=== PATIENT | male | born 1965 | race Caucasian/White ===

== ENCOUNTER 2017-04-22 17:38 | Emergency (ER) | payer MEDICARE ==
[2017-04-22 17:48] VITALS: BP 111/77
--- NOTE | 2017-04-22 18:29 | ER Document Report ---
ED Medical Screen (RME) - General Chief Complaint: Breathing Difficulty Stated Complaint: DIFFICULTY BREATHING Time Seen by Provider: 04/22/17 18:20 Notes: This 52-year-old male patient with a long history of dependency on opiates, benzodiazepines, and tobacco who has had bleeding ulcers in the past comes emergency room complaining of shortness of breath today that gets worse with activity. His respiratory rate is 22 with a 99% room air pulse ox. He ran out of his Ativan yesterday. I have greeted and performed a rapid initial assessment of this patient. A comprehensive ED assessment and evaluation of the patient, analysis of test results and completion of the medical decision making process will be conducted by additional ED providers. TRAVEL OUTSIDE OF THE [place] IN LAST 30 DAYS: No - Related Data Allergies/Adverse Reactions: No Known Allergies Allergy (Verified 04/22/17 18:16) Past Medical History - Past Medical History Cardiac Medical History: Reports: Hx Hypercholesterolemia, Hx Hypertension Pulmonary Medical History: Reports: Hx Pneumonia Neurological Medical History: Reports: Hx Seizures Renal/ Medical History: Denies: Hx Peritoneal Dialysis GI Medical History: Reports: Hx Gastroesophageal Reflux Disease Psychiatric Medical History: Reports: Hx Anxiety, Hx Depression Traumatic Medical History: Reports: Hx Fractures - Heel fractures, Hx Traumatic Brain Injury Past Surgical History: Reports: Hx Orthopedic Surgery - Harris rods age 17 for scoliosis - Immunizations Hx Diphtheria, Pertussis, Tetanus Vaccination: No Physical Exam - Vital signs Vitals: Temp Pulse Resp BP Pulse Ox 98 F 85 22 H 111/77 99 04/22/17 17:46 04/22/17 17:46 04/22/17 17:46 04/22/17 17:46 04/22/17 17:46 Course - Vital Signs Vital signs: Temp Pulse Resp BP Pulse Ox 98 F 85 22 H 111/77 99 04/22/17 17:46 04/22/17 17:46 04/22/17 17:46 04/22/17 17:46 04/22/17 17:46
--- NOTE | 2017-04-22 19:42 | RADIOLOGY REPORT (SQ) ---
EXAM DESCRIPTION: CHEST PA/LAT COMPLETED DATE/TIME: 04/22/2017 7:26 pm REASON FOR STUDY: SOB COMPARISON: September 2016 EXAM PARAMETERS: NUMBER OF VIEWS: two views TECHNIQUE: Digital Frontal and Lateral radiographic views of the chest acquired. RADIATION DOSE: NA LIMITATIONS: none FINDINGS: LUNGS AND PLEURA: No opacities, masses or pneumothorax. No pleural effusion. MEDIASTINUM AND HILAR STRUCTURES: No masses or contour abnormalities. HEART AND VASCULAR STRUCTURES: Heart normal size. No evidence for failure. BONES: Thoracic scoliosis convex to the right is unchanged. HARDWARE: Harris prince is unchanged in position. OTHER: No other significant finding. IMPRESSION: No significant interval change. No acute findings. Other findings as noted above TECHNICAL DOCUMENTATION: JOB ID: [id number] [employer]- All Rights Reserved
[2017-04-22] MEDS ORDERED: LORAZEPAM 1 MG TABLET PO ONE (19:53)
[2017-04-22 19:55] LABS: ABSOLUTE EOSINOPHILS # (AUTO) 0.1 10^3/uL (0.0-0.6); ABSOLUTE LYMPHOCYTES (AUTO) 3.2 10^3/uL (0.5-4.7); ABSOLUTE MONOCYTES (AUTO) 0.7 10^3/uL (0.1-1.4); ABSOLUTE NEUT (AUTO) 7.4 10^3/uL (1.7-8.2); BASOPHILS % (AUTO) 0.4 % (0-2); EOSINOPHILS % (AUTO) 0.7 % (0-6); HEMATOCRIT 34.5 % (37.9-51.0); HEMOGLOBIN 11.2 g/dL (13.5-17.0); HGB HCT DIFFERENCE -0.9; LYMPHOCYTES % (AUTO) 27.9 % (13-45); MEAN CORPUSCULAR HEMOGLOBIN 29.5 pg (27.0-33.4); MEAN CORPUSCULAR HGB CONC 32.6 g/dL (32.0-36.0); MEAN CORPUSCULAR VOLUME 90 fl (80-97); MONOCYTES % (AUTO) 6.3 % (3-13); RED BLOOD COUNT 3.82 10^6/uL (4.35-5.55); RED CELL DISTRIBUTION WIDTH 13.4 % (11.5-14.0); SEGMENTED NEUTROPHILS % (AUTO) 64.7 % (42-78); WHITE BLOOD COUNT 11.4 10^3/uL (4.0-10.5)
--- NOTE | 2017-04-22 19:55 | ER Document Report ---
ED General - General Chief Complaint: Breathing Difficulty Stated Complaint: DIFFICULTY BREATHING Time Seen by Provider: 04/22/17 18:20 Notes: Patient is a 52-year-old male that comes emergency department for chief complaint of shortness of breath that started this morning, he states that he feels like it comes and goes, he denies chest pain, he denies dizziness, he states the shortness of breath is worse with activity. Patient does smoke tobacco, denies history of COPD or asthma, denies wheezing, cough, fever. Patient states he was just weaned off his pain medications and he is having back pains, pending surgery for scoliosis reportedly. Patient also states that he is normally on Ativan and ran out yesterday. He has a refill for this that will not be available until 04/26/2017. Patient denies any cardiovascular history , states he had a negative stress test within the past year. TRAVEL OUTSIDE OF THE [place] IN LAST 30 DAYS: No - Related Data Allergies/Adverse Reactions: No Known Allergies Allergy (Verified 04/22/17 18:16) Past Medical History - General Information source: Patient - Social History Smoking Status: Current Every Day Smoker Smoking Education Provided: Yes - <3 min Drug Abuse: None Lives with: Family Family History: CVA - Mother - Past Medical History Cardiac Medical History: Reports: Hx Hypercholesterolemia, Hx Hypertension Pulmonary Medical History: Reports: Hx Pneumonia Neurological Medical History: Reports: Hx Seizures Renal/ Medical History: Denies: Hx Peritoneal Dialysis GI Medical History: Reports: Hx Gastroesophageal Reflux Disease Psychiatric Medical History: Reports: Hx Anxiety, Hx Depression Traumatic Medical History: Reports: Hx Fractures - Heel fractures, Hx Traumatic Brain Injury Past Surgical History: Reports: Hx Orthopedic Surgery - Harris rods age 17 for scoliosis - Immunizations Hx Diphtheria, Pertussis, Tetanus Vaccination: No Review of Systems - Review of Systems Constitutional: No symptoms reported EENT: No symptoms reported Cardiovascular: No symptoms reported Respiratory: See HPI Gastrointestinal: No symptoms reported Genitourinary: No symptoms reported Male Genitourinary: No symptoms reported Musculoskeletal: See HPI Skin: No symptoms reported Hematologic/Lymphatic: No symptoms reported Neurological/Psychological: See HPI Physical Exam - Vital signs Vitals: Temp Pulse Resp BP Pulse Ox 98 F 85 22 H 111/77 99 04/22/17 17:46 04/22/17 17:46 04/22/17 17:46 04/22/17 17:46 04/22/17 17:46 Interpretation: Normal - General General appearance: Anxious In distress: None - patient talks rapidly and nervously, however he does not appear to be in distress - HEENT Head: Normocephalic, Atraumatic Eyes: Normal Pupils: PERRL - Respiratory Respiratory status: No respiratory distress. No: Tachypnea Chest status: Nontender Breath sounds: Normal. No: Decreased air movement, Wheezing Chest palpation: Normal - Cardiovascular Rhythm: Regular Heart sounds: Normal auscultation Murmur: No - Abdominal Inspection: Normal Distension: No distension Bowel sounds: Normal Tenderness: Nontender. No: Tender, Guarding Organomegaly: No organomegaly - Back Back: Normal, Nontender. No: Tender - Extremities General upper extremity: Normal inspection, Nontender, Normal color, Normal ROM , Normal temperature General lower extremity: Normal inspection, Nontender, Normal color, Normal ROM , Normal temperature, Normal weight bearing. No: Rafi's sign - Neurological Neuro grossly intact: Yes Cognition: Normal Orientation: AAOx4 Svetlana Coma Scale Eye Opening: Spontaneous [place] Coma Scale Verbal: Oriented [place] Coma Scale Motor: Obeys Commands [place] Coma Scale Total: 15 Speech: Normal Motor strength normal: LUE, RUE, LLE, RLE Sensory: Normal - Psychological Associated symptoms: Anxious - Patient talks rapidly and is slightly anxious on exam, however he does make good eye contact, he does answer questions appropriately, he does listen to questions without difficulty - Skin Skin Temperature: Warm Skin Moisture: Dry Skin Color: Normal Course - Re-evaluation Re-evalutation: Workup is unremarkable, patient is not tachypneic, hypoxic, and has clear lung sounds. Chest x-ray normal. Patient's shortness of breath resolved after Ativan was given. Suggest an anxiety component. Low suspicion of ACS given symptoms since this morning with normal troponin and unremarkable workup with symptoms starting only after he stopped his medications. Patient also asks for pain medication, however patient is on pain management and is getting weaned off morphine in plans of him having back surgery and having more efficacy with the medication again. Explained to patient that this was not in his best interest, I did agree to give him a small amount of Ativan pending his refills, discussed follow-up with his provider, discussed return precautions, patient states understanding and agreement. Patient declined staying for an additional troponin, I do not feel this is indicated and this test was canceled. - Vital Signs Vital signs: Temp Pulse Resp BP Pulse Ox 98 F 85 22 H 111/77 99 04/22/17 17:46 04/22/17 17:46 04/22/17 17:46 04/22/17 17:46 04/22/17 17:46 - Laboratory Result Diagrams: 04/22/17 19:03 04/22/17 19:03 Laboratory results interpreted by me: 04/22/17 04/22/17 19:03 19:03 WBC 11.4 H RBC 3.82 L Hgb 11.2 L Hct 34.5 L Chloride 110 H Discharge - Discharge Clinical Impression: Shortness of breath Chronic back pain Qualifiers: Back pain location: back pain in unspecified location Back pain laterality: bilateral Qualified Code(s): M54.9 - Dorsalgia, unspecified Condition: Stable Disposition: HOME, SELF-CARE Additional Instructions: Your workup today does not indicate an acute abnormality. Take the medication as prescribed, continue your current scripts, follow up with your Provider. Return to the ED for returned or new concerning symptoms. Prescriptions: Lorazepam [Ativan 1 mg Tablet] 1 mg PO Q4 PRN #12 tab PRN Reason: Referrals: BERTRAND ARAGON FNP [Primary Care Provider] - Follow up as needed
[2017-04-22 19:58] LABS: APPEARANCE,URINE CLEAR; BILIRUBIN,URINE NEGATIVE (NEGATIVE); GLUCOSE, URINE NEGATIVE (NEGATIVE); KETONES,URINE NEGATIVE (NEGATIVE); LEUKOCYTE ESTERASE,URINE NEGATIVE (NEGATIVE); NITRITE,URINE NEGATIVE (NEGATIVE); PROTEIN,URINE NEGATIVE (NEGATIVE); URINE SPECIFIC GRAVITY 1.013; UROBILINOGEN,URINE NEGATIVE mg/dL (<2.0)
[2017-04-22 20:05] LABS: ALANINE AMINOTRANSFERASE 28 U/L (21-72); ALBUMIN 4.3 g/dL (3.5-5.0); ALKALINE PHOSPHATASE 72 U/L (38-126); ANION GAP 11 (5-19); ASPARTATE AMINO TRANSFERASE 17 U/L (17-59); BILIRUBIN,DIRECT 0.4 mg/dL (0.0-0.4); BILIRUBIN,TOTAL 0.5 mg/dL (0.2-1.3); BLOOD UREA NITROGEN 12 mg/dL (7-20); CALCIUM 9.8 mg/dL (8.4-10.2); CARBON DIOXIDE 22 mmol/L (22-30); CHLORIDE 110 mmol/L (98-107); CREATINE KINASE 86 U/L (55-170); CREATININE RESULT 1.06 mg/dL (0.52-1.25); GLUCOSE 77 mg/dL (75-110); MAGNESIUM 1.7 mg/dL (1.6-2.3); POTASSIUM 3.7 mmol/L (3.6-5.0); TOTAL PROTEIN 7.4 g/dL (6.3-8.2)
[2017-04-22 20:15] LABS: CREATINE KINASE MB 1.48 ng/mL (<4.55)
[2017-04-22 20:18] LABS: TROPONIN I < 0.012 ng/mL
--- NOTE | 2017-04-23 21:10 | EKG REPORT ---
SEVERITY:- ABNORMAL ECG - SINUS RHYTHM PROBABLE LEFT ATRIAL ABNORMALITY NONSPECIFIC INTRAVENTRICULAR CONDUCTION DELAY : Confirmed by: Paulina Corbett 23-Apr-2017 21:09:07
== END 2017-04-22 20:50 | disposition home or self-care (01) ==
LOC: ER 17:38
DX: R06.02 Shortness of breath (principal); G89.29 Other chronic pain; M54.9 Dorsalgia, unspecified; M41.9 Scoliosis, unspecified; F17.200 Nicotine dependence, unspecified, uncomplicated; Z71.6 Tobacco abuse counseling; F41.9 Anxiety disorder, unspecified; I10 Essential (primary) hypertension; Z79.899 Other long term (current) drug therapy
CPT/HCPCS: 93005; 99285; 36415; 82553; 82550; 83735; 85025; 80053; 81001; 84484; 71020; 93010; A9270

== ENCOUNTER 2017-08-07 20:32 | Emergency (ER) | payer MEDICARE, MEDICAID ==
[2017-08-07] MEDS ORDERED: NORMAL SALINE 1000 ML 1,000 ML IV PRN (21:15)
--- NOTE | 2017-08-07 21:15 | ER Document Report ---
ED General - General Chief Complaint: Probable Seizure Stated Complaint: WEAKNESS Time Seen by Provider: 08/07/17 21:06 Mode of Arrival: Medic Information source: Patient Notes: This is a 52-year-old man with a history of hypertension, seizures, chronic back pain who is brought in by EMS after a seizure at home. Patient lives with her sister. He does report having a few shots of alcohol today. EMS reports that he had some nausea vomiting and diarrhea and that the family had called because he was "unresponsive". On arrival, he was noted to be alert but confused. Patient denies any chest pain, shortness of breath, abdominal pain. TRAVEL OUTSIDE OF THE [place] IN LAST 30 DAYS: No - HPI Onset: Just prior to arrival Onset/Duration: Sudden Quality of pain: No pain Severity: None Pain Level: Denies Associated symptoms: Diarrhea, Nausea, Vomiting. denies: Fever Exacerbated by: Denies Relieved by: Denies Similar symptoms previously: No Recently seen / treated by doctor: No - Related Data Allergies/Adverse Reactions: No Known Allergies Allergy (Verified 08/07/17 20:41) Past Medical History - General Information source: Patient - Social History Smoking Status: Current Every Day Smoker Cigarette use (# per day): Yes Chew tobacco use (# tins/day): No Frequency of alcohol use: Social Drug Abuse: None Lives with: Family Family History: CVA - Mother Patient has suicidal ideation: No Patient has homicidal ideation: No - Past Medical History Cardiac Medical History: Reports: Hx Hypercholesterolemia, Hx Hypertension Pulmonary Medical History: Reports: Hx Pneumonia Neurological Medical History: Reports: Hx Seizures Renal/ Medical History: Denies: Hx Peritoneal Dialysis GI Medical History: Reports: Hx Gastroesophageal Reflux Disease Psychiatric Medical History: Reports: Hx Anxiety, Hx Depression Traumatic Medical History: Reports: Hx Fractures - Heel fractures, Hx Traumatic Brain Injury Past Surgical History: Reports: Hx Orthopedic Surgery - Harris rods age 17 for scoliosis - Immunizations Hx Diphtheria, Pertussis, Tetanus Vaccination: No Review of Systems - Review of Systems Constitutional: denies: Chills, Fever EENT: No symptoms reported Cardiovascular: No symptoms reported Respiratory: No symptoms reported Gastrointestinal: See HPI Genitourinary: No symptoms reported Male Genitourinary: No symptoms reported Musculoskeletal: No symptoms reported Skin: No symptoms reported Hematologic/Lymphatic: No symptoms reported Neurological/Psychological: See HPI Physical Exam - Vital signs Vitals: Resp BP Pulse Ox 21 H 110/68 99 08/07/17 20:36 08/07/17 20:36 08/07/17 20:36 Notes: Physical exam: GENERAL: 52-year-old man, postictal, answering questions appropriately. HEAD: Atraumatic, normocephalic. EYES: Pupils equal round and reactive to light, extraocular movements intact, sclera anicteric, conjunctiva are normal. ENT: TMs normal, nares patent, oropharynx clear without exudates. Moist mucous membranes. NECK: Normal range of motion, supple without obvious mass or JVD. LUNGS: Breath sounds clear to auscultation bilaterally and equal. No wheezes rales or rhonchi. HEART: Regular rate and rhythm without murmurs, rubs or gallops. ABDOMEN: Soft, normoactive bowel sounds. No tenderness to palpation. No guarding, no rebound. No masses appreciated. EXTREMITIES: Normal range of motion, no pitting or edema. No clubbing or cyanosis. NEUROLOGICAL: Cranial nerves II through XII grossly intact. Normal speech, moving all extremities. PSYCH: Normal mood, normal affect. SKIN: Warm, Dry, normal turgor, no rashes or lesions noted. Course - Re-evaluation Re-evalutation: 08/08/17 02:12 Patient was observed several hours and is been doing fine. He is no longer postictal. He does have a low magnesium, low calcium and low potassium and is been repleted with all these. He is received some IV fluids. He was given IV Keppra (1 g). He was given some p.o. Ativan. He is been without seizures. He has not had any nausea or vomiting. Plan will be for discharge in the morning. - Vital Signs Vital signs: Temp Pulse Resp BP Pulse Ox 16 106/73 97 08/08/17 02:37 08/08/17 02:37 08/08/17 02:37 - Laboratory Result Diagrams: 08/07/17 21:21 08/07/17 22:07 Laboratory results interpreted by me: 08/07/17 08/07/17 21:21 22:07 RBC 3.62 L Hgb 10.9 L Hct 32.4 L Potassium 3.3 L Chloride 116 H Carbon Dioxide 17 L Calcium 8.3 L Magnesium 1.3 L AST 14 L ALT 17 L Total Protein 5.5 L Albumin 2.9 L Discharge - Discharge Clinical Impression: Seizure, Hypomagnesemia, Hypokalemia, Hypocalcemia Condition: Stable Disposition: HOME, SELF-CARE Additional Instructions: Thank you for choosing [facility] for your care. The examination and treatment you have received in the Emergency Department today has been rendered on an emergency basis only and is not intended to be a substitute for complete medical care. You should contact your follow-up physician as it is important that he or she examine you for any new or remaining problems. If given a copy of any lab tests or radiology reports, please bring them with you when you see your physician. If your problem worsens or new symptoms appear and you are unable to arrange prompt follow-up care, return to the Emergency Department. Specific signs to look out for: Worsening seizures, worsening mental status changes, any concerns or getting worse. Any other instructions: Rest, drink plenty of fluids, avoid alcohol. Continue medicines as prescribed. Primary Care Doctor's affiliated with [facility]: If you do not have a primary care doctor or you are unable to get an apointment during that time, you can try one of the doctor's below. These are internal medicine doctor's that have admitting priveledges to the hospital ( they will see you both in the office as well as in this hospital if you are ever hospitalized here). Dr. Dank Gaming [address], [place] [address] [phone] Dr Clark Address: [address] , [place] [address] Dr Soliz Address: [address] [place] [address] [place] [address]
[2017-08-07] MEDS ORDERED: LEVETIRACETAM 1000 MG/NACL-ISO 1,000 MG/100 ML RTUPB IV ONE (21:16)
[2017-08-07] MEDS ORDERED: LORAZEPAM 1 MG TABLET PO ONE (21:16)
[2017-08-07 21:41] LABS: ABSOLUTE BASOPHILS # (AUTO) 0.1 10^3/uL (0.0-0.2); ABSOLUTE EOSINOPHILS # (AUTO) 0.2 10^3/uL (0.0-0.6); ABSOLUTE LYMPHOCYTES (AUTO) 2.7 10^3/uL (0.5-4.7); ABSOLUTE MONOCYTES (AUTO) 0.5 10^3/uL (0.1-1.4); ABSOLUTE NEUT (AUTO) 5.9 10^3/uL (1.7-8.2); BASOPHILS % (AUTO) 0.9 % (0-2); HEMATOCRIT 32.4 % (37.9-51.0); HEMOGLOBIN 10.9 g/dL (13.5-17.0); HGB HCT DIFFERENCE 0.3; LYMPHOCYTES % (AUTO) 29.2 % (13-45); MEAN CORPUSCULAR HEMOGLOBIN 30.1 pg (27.0-33.4); MEAN CORPUSCULAR HGB CONC 33.6 g/dL (32.0-36.0); MEAN CORPUSCULAR VOLUME 90 fl (80-97); MONOCYTES % (AUTO) 5.2 % (3-13); RED BLOOD COUNT 3.62 10^6/uL (4.35-5.55); SEGMENTED NEUTROPHILS % (AUTO) 62.7 % (42-78); WHITE BLOOD COUNT 9.4 10^3/uL (4.0-10.5)
[2017-08-07 22:33] LABS: ALANINE AMINOTRANSFERASE 17 U/L (21-72); ALBUMIN 2.9 g/dL (3.5-5.0); ALCOHOL < 10 mg/dL (NONE DETECTED); ALKALINE PHOSPHATASE 72 U/L (38-126); ANION GAP 10 (5-19); ASPARTATE AMINO TRANSFERASE 14 U/L (17-59); BILIRUBIN,DIRECT 0.2 mg/dL (0.0-0.4); BILIRUBIN,TOTAL 0.2 mg/dL (0.2-1.3); BLOOD UREA NITROGEN 15 mg/dL (7-20); CALCIUM 8.3 mg/dL (8.4-10.2); CARBON DIOXIDE 17 mmol/L (22-30); CHLORIDE 116 mmol/L (98-107); CREATININE RESULT 0.95 mg/dL (0.52-1.25); GLUCOSE 93 mg/dL (75-110); MAGNESIUM 1.3 mg/dL (1.6-2.3); POTASSIUM 3.3 mmol/L (3.6-5.0); SODIUM 143.3 mmol/L (137-145); TOTAL PROTEIN 5.5 g/dL (6.3-8.2)
--- NOTE | 2017-08-07 22:36 | EKG REPORT ---
SEVERITY:- ABNORMAL ECG - SINUS RHYTHM PROBABLE LEFT ATRIAL ABNORMALITY NONSPECIFIC INTRAVENTRICULAR CONDUCTION DELAY : Confirmed by: Paulina Corbett 07-Aug-2017 22:35:26
[2017-08-08] MEDS ORDERED: CALCIUM GLUCONATE 1000 MG/10 ML INJ IV ONE (00:23)
[2017-08-08] MEDS ORDERED: POTASSIUM CHLORIDE 20 MEQ/15 ML UDCUP PO ONE ×2 (00:23→02:00)
[2017-08-08] MEDS: MAGNESIUM SULFATE/D5W 1 GM/100 ML RTUPB IV SCH ×2 (00:34→01:23)
[2017-08-08 06:36] VITALS: BP 106/70
== END 2017-08-08 06:36 | disposition home or self-care (01) ==
LOC: ER 20:32
DX: R56.9 Unspecified convulsions (principal); E87.6 Hypokalemia; E83.42 Hypomagnesemia; E83.51 Hypocalcemia; R53.1 Weakness; I10 Essential (primary) hypertension; G89.29 Other chronic pain; M54.9 Dorsalgia, unspecified; R19.7 Diarrhea, unspecified; R11.2 Nausea with vomiting, unspecified; F17.210 Nicotine dependence, cigarettes, uncomplicated; E78.00 Pure hypercholesterolemia, unspecified; K21.9 Gastro-esophageal reflux disease without esophagitis; Z87.820 Personal history of traumatic brain injury
CPT/HCPCS: 93005; 99285; 96375; 96365; 96366; 96367; 36415; 80307; 83735; 85025; 80053; 93010; J0610; J3475; A9270 ×2; J7030; J1953

== ENCOUNTER 2017-10-13 12:35 | Inpatient (IN) | payer MEDICARE, MEDICAID ==
[2017-10-13] MEDS ORDERED: NORMAL SALINE 250 ML IV ONE (13:14)
[2017-10-13] MEDS ORDERED: RINGERS SOLUTION,LACTATED 1,000 ML IV ONE ×2 (13:14→17:19)
[2017-10-13 13:25] LABS: ABSOLUTE EOSINOPHILS # (AUTO) 0.1 10^3/uL (0.0-0.6); ABSOLUTE LYMPHOCYTES (AUTO) 1.5 10^3/uL (0.5-4.7); ABSOLUTE MONOCYTES (AUTO) 1.4 10^3/uL (0.1-1.4); ABSOLUTE NEUT (AUTO) 8.1 10^3/uL (1.7-8.2); BASOPHILS % (AUTO) 0.2 % (0-2); EOSINOPHILS % (AUTO) 1.2 % (0-6); HEMOGLOBIN 11.9 g/dL (13.5-17.0); HGB HCT DIFFERENCE -0.3; LYMPHOCYTES % (AUTO) 13.8 % (13-45); MEAN CORPUSCULAR HEMOGLOBIN 29.3 pg (27.0-33.4); MEAN CORPUSCULAR HGB CONC 33.1 g/dL (32.0-36.0); MEAN CORPUSCULAR VOLUME 89 fl (80-97); MONOCYTES % (AUTO) 12.1 % (3-13); RED BLOOD COUNT 4.07 10^6/uL (4.35-5.55); RED CELL DISTRIBUTION WIDTH 14.2 % (11.5-14.0); SEGMENTED NEUTROPHILS % (AUTO) 72.7 % (42-78); WHITE BLOOD COUNT 11.2 10^3/uL (4.0-10.5)
[2017-10-13 13:34] LABS: ALANINE AMINOTRANSFERASE 27 U/L (21-72); ALBUMIN 3.5 g/dL (3.5-5.0); ALKALINE PHOSPHATASE 73 U/L (38-126); ANION GAP 16 (5-19); ASPARTATE AMINO TRANSFERASE 19 U/L (17-59); BILIRUBIN,DIRECT 0.3 mg/dL (0.0-0.4); BILIRUBIN,TOTAL 0.3 mg/dL (0.2-1.3); BLOOD UREA NITROGEN 35 mg/dL (7-20); CALCIUM 8.5 mg/dL (8.4-10.2); CARBON DIOXIDE 13 mmol/L (22-30); CHLORIDE 116 mmol/L (98-107); GLUCOSE 91 mg/dL (75-110); POTASSIUM 3.7 mmol/L (3.6-5.0); SODIUM 144.5 mmol/L (137-145); TOTAL PROTEIN 6.2 g/dL (6.3-8.2)
[2017-10-13 13:38] LABS: ALCOHOL < 10 mg/dL (NONE DETECTED)
[2017-10-13] MEDS ORDERED: NORMAL SALINE 1000 ML 1,000 ML IV ONE (13:42)
[2017-10-13 14:07] LABS: APPEARANCE,URINE SLIGHTLY-CLOUDY; BILIRUBIN,URINE NEGATIVE (NEGATIVE); GLUCOSE, URINE NEGATIVE (NEGATIVE); KETONES,URINE NEGATIVE (NEGATIVE); LEUKOCYTE ESTERASE,URINE NEGATIVE (NEGATIVE); NITRITE,URINE NEGATIVE (NEGATIVE); PROTEIN,URINE 30 mg/dL (NEGATIVE); URINE SPECIFIC GRAVITY 1.012; UROBILINOGEN,URINE NEGATIVE mg/dL (<2.0)
[2017-10-13 14:09] LABS: URINE BARBITURATES SCREEN NEGATIVE; URINE METHADONE SCREEN NEGATIVE; URINE OPIATES LOW NEGATIVE; URINE PHENCYCLIDINE SCREEN NEGATIVE
--- NOTE | 2017-10-13 14:41 | RADIOLOGY REPORT (SQ) ---
EXAM DESCRIPTION: CHEST SINGLE VIEW COMPLETED DATE/TIME: 10/13/2017 2:00 pm REASON FOR STUDY: Altered mental function COMPARISON: March 2017 EXAM PARAMETERS: NUMBER OF VIEWS: One view. TECHNIQUE: Single frontal radiographic view of the chest acquired. RADIATION DOSE: NA LIMITATIONS: None. FINDINGS: LUNGS AND PLEURA: No opacities, masses or pneumothorax. No pleural effusion. MEDIASTINUM AND HILAR STRUCTURES: No masses. Contour normal. HEART AND VASCULAR STRUCTURES: Heart normal in size. Normal vasculature. BONES: No acute findings. HARDWARE: Orthopedic hardware is again identified in the thoracic spine. OTHER: No other significant finding. IMPRESSION: NO ACUTE RADIOGRAPHIC FINDING IN THE CHEST. TECHNICAL DOCUMENTATION: JOB ID: [id number] [employer]- All Rights Reserved
--- NOTE | 2017-10-13 14:50 | RADIOLOGY REPORT (SQ) ---
EXAM DESCRIPTION: CT HEAD WITHOUT COMPLETED DATE/TIME: 10/13/2017 1:59 pm REASON FOR STUDY: Altered mental status, lethargic COMPARISON: May 2016 TECHNIQUE: Axial images acquired through the brain without intravenous contrast. Images reviewed wi th bone, brain and subdural windows. Images stored on PACS. All CT scanners at this facility use dose modulation, iterative reconstruction, and/or weight based d osing when appropriate to reduce radiation dose to as low as reasonably achievable (ALARA). [facility]: Dose Right [facility]: CareDose [facility]: Dose Right [facility]: Teradose 4D [facility]: Smart Central Logic RADIATION DOSE: Up-to-date CT equipment and radiation dose reduction techniques were employed. CTDIv ol: 64.6 mGy. DLP: 1034 mGy-cm. mGy. LIMITATIONS: None. FINDINGS: VENTRICLES: Normal size and contour. CEREBRUM: No masses. No hemorrhage. No midline shift. No evidence for acute infarction. Normal gra y/white matter differentiation. No areas of low density in the white matter. CEREBELLUM: No masses. No hemorrhage. No alteration of density. No evidence for acute infarction. EXTRAAXIAL SPACES: No fluid collections. No masses. ORBITS AND GLOBE: No intra- or extraconal masses. Normal contour of globe without masses. CALVARIUM: No fracture. PARANASAL SINUSES: No fluid or mucosal thickening. SOFT TISSUES: No mass or hematoma. OTHER: No other significant finding. IMPRESSION: NORMAL BRAIN CT WITHOUT CONTRAST. EVIDENCE OF ACUTE STROKE: NO. COMMENT: Quality ID # [id number]: Final reports with documentation of one or more dose reduction techniques (e.g., Automated exposure control, adjustment of the mA and/or kV according to patient size, use of iterative reconstruction technique) TECHNICAL DOCUMENTATION: JOB ID: [id number] [employer]- All Rights Reserved
--- NOTE | 2017-10-13 15:44 | EKG REPORT ---
SEVERITY:- ABNORMAL ECG - SINUS RHYTHM INCOMPLETE RIGHT BUNDLE BRANCH BLOCK LEFT VENTRICULAR HYPERTROPHY : Confirmed by: Paulina Corbett 13-Oct-2017 15:43:27
[2017-10-13] MEDS ORDERED: NORMAL SALINE 1000 ML 1,000 ML IV PRN (17:18)
[2017-10-13] MEDS ORDERED: ONDANSETRON HCL INJ/PF 4 MG/2 ML SDV IV PRN (17:23)
[2017-10-13] MEDS ORDERED: ACETAMINOPHEN 325 MG TABLET PO PRN (17:23)
--- NOTE | 2017-10-13 17:24 | ER Document Report ---
ED General - General Chief Complaint: Altered Mental Status Stated Complaint: ALTERED MENTAL STATUS Time Seen by Provider: 10/13/17 13:09 Notes: Patient was brought in by EMS after having been called by patient's family because of patient having altered mental status since yesterday. Family says he was "talking out of his head", could not recognize anyone and seem depressed. Symptoms worsened today. Patient is a known alcoholic and has spent the past 2 days mostly laying down in his bed. Family left him alone and thought he was just drinking. They went to check on him and did find that he had been incontinent of stool and defecated on himself. They say that he has been depressed about the of his mother sometime in this past year. Patient has not complained of any chest pains, head pain, or abdominal pain. Also has not complained of any difficulty breathing or shortness of breath. Family is not aware of any fevers. Patient is on multiple medications which can be sedating. He is on Valium, amitriptyline, BuSpar, Cymbalta, Keppra, and gabapentin, Patient has a history of seizures and is on Keppra. Also history of hypertension. TRAVEL OUTSIDE OF THE [place] IN LAST 30 DAYS: No - Related Data Allergies/Adverse Reactions: No Known Allergies Allergy (Verified 08/07/17 20:41) Home Medications: Current Home Medications Amitriptyline HCl [Elavil 100 mg Tablet] 100 mg PO QHS 10/13/17 [History] Baclofen [Baclofen 10 mg Tablet] 10 mg PO Q8HP PRN 10/13/17 [History] Buspirone HCl [Buspar 10 mg Tablet] 10 mg PO Q12 10/13/17 [History] Diazepam [Valium] 5 mg PO Q8 10/13/17 [History] Duloxetine HCl [Cymbalta] 60 mg PO Q12 10/13/17 [History] Gabapentin [Neurontin] 600 mg PO Q8 10/13/17 [History] Hydroxyzine Pamoate [Vistaril 25 mg Capsule] 25 mg PO Q6HP PRN 10/13/17 [History ] Levetiracetam [Keppra] 750 mg PO Q12 10/13/17 [History] Lisinopril [Prinivil 10 mg Tablet] 10 mg PO DAILY 10/13/17 [History] Metoprolol Tartrate [Lopressor 25 mg Tablet] 25 mg PO Q12 10/13/17 [History] Omeprazole 40 mg PO Q12 10/13/17 [History] Oxycodone HCl 15 mg PO Q4H 10/13/17 [History] Simvastatin [Zocor 40 mg Tablet] 40 mg PO QHS 10/13/17 [History] Past Medical History - Social History Smoking Status: Current Every Day Smoker Frequency of alcohol use: Heavy Family History: CVA - Mother Patient has suicidal ideation: No - Unable to obtain Patient has homicidal ideation: No - Unable to obtain - Past Medical History Cardiac Medical History: Reports: Hx Hypercholesterolemia, Hx Hypertension Pulmonary Medical History: Reports: Hx Pneumonia Neurological Medical History: Reports: Hx Seizures GI Medical History: Reports: Hx Gastroesophageal Reflux Disease Psychiatric Medical History: Reports: Hx Anxiety, Hx Depression Traumatic Medical History: Reports: Hx Fractures - Heel fractures, Hx Traumatic Brain Injury Past Surgical History: Reports: Hx Orthopedic Surgery - Harris rods age 17 for scoliosis - Immunizations Hx Diphtheria, Pertussis, Tetanus Vaccination: No Review of Systems - Review of Systems Notes: REVIEW OF SYSTEMS: CONSTITUTIONAL : Denies fever. EENT: Denies eye, ear, nose or mouth or throat pain or other symptoms. CARDIOVASCULAR: Denies chest pain. RESPIRATORY: Denies cough, chest congestion, or shortness of breath. GASTROINTESTINAL: Denies abdominal pain or nausea, vomiting, or diarrhea. GENITOURINARY: Denies difficulty or painful urinating, urinary frequency, blood in urine. MUSCULOSKELETAL: Denies back or neck pain. Denies joint pain or swelling. SKIN: Denies rash or skin lesions. NEUROLOGICAL: See HPI. ALL OTHER SYSTEMS REVIEWED AND NEGATIVE. Physical Exam - Vital signs Vitals: Resp BP Pulse Ox 25 H 105/67 96 10/13/17 12:42 10/13/17 12:42 10/13/17 12:42 Interpretation: Normal - Notes Notes: PHYSICAL EXAMINATION: GENERAL: Well-appearing, in no acute distress. Patient does not respond to voice request or command. It takes fairly significant tactile painful stimulation to get the patient to wince and then open his eyes. His speech is so slurred I cannot understand what he saying. Then he falls back asleep. HEAD: Atraumatic, normocephalic. EYES: Pupils equal, about 6-7 mm bilaterally, round and reactive to light, extraocular movements intact. ENT: oropharynx clear without exudates. Moist mucous membranes. NECK: Normal range of motion, supple. No carotid bruits heard. LUNGS: Breath sounds clear and equal bilaterally. HEART: Regular rate and rhythm without murmurs. ABDOMEN: Soft, nontender. No guarding or rebound. BACK: No tenderness throughout entire back. EXTREMITIES: Normal range of motion without pain. NEUROLOGICAL: Very sleepy and somnolent. Cannot get patient to follow any commands. Does withdraw all 4 extremities with painful tactile stimulation. PSYCH: Unable to assess. SKIN: Warm, dry, no rashes. Course - Re-evaluation Re-evalutation: 10/13/17 17:30 Patient has begun to awaken. Opens eyes to voice. Still speaks somewhat slurred, but recognizes 1 of his relatives who is at the bedside. Patient's renal function is somewhat decreased, probably prerenal in origin. Total CPK is also increased, probably from laying around for the last 2 days. Patient has had IV fluids and is now 1 L #3. I have spoken with the hospitalist on-call about admitting the patient. - Vital Signs Vital signs: Temp Pulse Resp BP Pulse Ox 97 F L 10 L 105/62 97 10/13/17 13:53 10/13/17 15:01 10/13/17 15:01 10/13/17 15:01 - Laboratory Result Diagrams: 10/13/17 12:48 10/13/17 12:48 Laboratory results interpreted by me: 10/13/17 10/13/17 10/13/17 12:48 12:48 12:48 WBC 11.2 H RBC 4.07 L Hgb 11.9 L Hct 36.0 L RDW 14.2 H Chloride 116 H Carbon Dioxide 13 L BUN 35 H Creatinine 3.00 H Est GFR ( Amer) 27 L Est GFR (Non-Af Amer) 22 L Creatine Kinase 675 H Total Protein 6.2 L Urine Protein Salicylates < 1.0 L Acetaminophen < 10 L 10/13/17 13:22 WBC RBC Hgb Hct RDW Chloride Carbon Dioxide BUN Creatinine Est GFR ( Amer) Est GFR (Non-Af Amer) Creatine Kinase Total Protein Urine Protein 30 H Salicylates Acetaminophen - EKG Interpretation by [facility] EKG shows normal: Sinus rhythm Rate: Normal Rhythm: NSR - At 98. [place]/QRS: RBBB Voltage: Consistant with [facility] Discharge - Discharge Clinical Impression: Altered mental status, Adult failure to thrive, Alcohol abuse, Elevated CPK, Renal insufficiency Condition: Serious Disposition: ADMITTED OBSERVATION Admitting Provider: Hospitalist Unit Admitted: Telemetry Referrals: BERTRAND ARAGON FNP [Primary Care Provider] - Follow up as needed
--- NOTE | 2017-10-13 18:33 | PDOC H&P ---
History of Present Illness Admission Date/PCP: 10/13/17 17:32 CASANDRA JANE Patient complains of: Unresponsiveness History of Present Illness: LIZ WETZEL is a 52 year old male with history of hypertension and seizure on Keppra, was brought to the emergency room by family due to altered mental status since 10/12/2017. The patient is unresponsive and history has been obtained from the family [niece who is by the bedside]. Family, the patient started 'talking out of his head' yesterday. He was reportedly disoriented, confused, and depressed. This morning he was significantly more confused. He was later found in his bed, unresponsive, incontinent of stool and urine. When brought to the emergency room, patient was responsive to painful stimuli, and was unable to provide any history. Head CT scan was negative for any acute abnormalities. At the time of my exam, the patient is becoming more awake and is able to speak in monosyllables. However he is still unable to state where he is, what year, or the name of his niece who is standing by the bedside. Past Medical History Cardiac Medical History: Reports: Hyperlipidema, Hypertension Pulmonary Medical History: Reports: Pneumonia Neurological Medical History: Reports: Seizures GI Medical History: Reports: Gastroesophageal Reflux Disease Psychiatric Medical History: Reports: Depression Traumatic Medical History: Reports: Traumatic Brain Injury Past Surgical History Past Surgical History: Reports: Orthopedic Surgery - Harris rods age 17 for scoliosis Social History Information Source: Relative, Emergency Med Personnel Lives with: Family Smoking Status: Current Every Day Smoker Frequency of Alcohol Use: Occasional Hx Recreational Drug Use: No Drugs: None, Marijuana Hx Prescription Drug Abuse: No Past Social History Note: Unable to obtain, as patient is minimally responsive - Advance Directive Resuscitation Status: Full Code Family History Family History: CVA - Mother Parental Family History Reviewed: Yes Children Family History Reviewed: NA Sibling(s) Family History Reviewed.: NA Medication/Allergy Home Medications: Amitriptyline HCl [Elavil 100 mg Tablet] 100 mg PO QHS 10/13/17 Baclofen [Baclofen 10 mg Tablet] 10 mg PO Q8HP PRN 10/13/17 Buspirone HCl [Buspar 10 mg Tablet] 10 mg PO Q12 10/13/17 Diazepam [Valium] 5 mg PO Q8 10/13/17 Duloxetine HCl [Cymbalta] 60 mg PO Q12 10/13/17 Gabapentin [Neurontin] 600 mg PO Q8 10/13/17 Hydroxyzine Pamoate [Vistaril 25 mg Capsule] 25 mg PO Q6HP PRN 10/13/17 Levetiracetam [Keppra] 750 mg PO Q12 10/13/17 Lisinopril [Prinivil 10 mg Tablet] 10 mg PO DAILY 10/13/17 Metoprolol Tartrate [Lopressor 25 mg Tablet] 25 mg PO Q12 10/13/17 Omeprazole 40 mg PO Q12 10/13/17 Oxycodone HCl 15 mg PO Q4H 10/13/17 Simvastatin [Zocor 40 mg Tablet] 40 mg PO QHS 10/13/17 Allergies/Adverse Reactions: No Known Allergies Allergy (Verified 08/07/17 20:41) Review of Systems ROS unobtainable: Due to mental status Physical Exam Vital Signs: Temp Pulse Resp BP Pulse Ox 97 F L 22 H 126/79 H 98 10/13/17 13:53 10/13/17 17:01 10/13/17 17:01 10/13/17 17:01 General appearance: PRESENT: no acute distress, disheveled, thin, other - Patient is drowsy, able to follow one-step commands Head exam: PRESENT: atraumatic, normocephalic Eye exam: PRESENT: conjunctiva pink, EOMI, PERRLA. ABSENT: conjunctival injection, conjunctiva pale, nystagmus, periorbital swelling, scleral icterus, other Mouth exam: PRESENT: moist. ABSENT: dry mucosa, laceration, neck supple, tongue midline, other Teeth exam: PRESENT: other - He has no teeth Neck exam: PRESENT: carotid bruit, full ROM Respiratory exam: PRESENT: decreased breath sounds, symmetrical, unlabored Cardiovascular exam: PRESENT: RRR, +S1, +S2 Pulses: PRESENT: normal carotid pulses, normal radial pulses, normal dorsalis pedis pul Vascular exam: PRESENT: normal capillary refill GI/Abdominal exam: PRESENT: normal bowel sounds, soft. ABSENT: ascites, diminished bowel sounds, distended, firm, guarding, hernia, hyperactive bowel sounds, hypoactive bowel sounds, mass, Blair's sign, organolmegaly, rebound, rigid, tenderness, other Rectal exam: PRESENT: deferred Extremities exam: PRESENT: full ROM. ABSENT: calf tenderness, clubbing, joint swelling, pedal edema, tenderness, +1 edema, +2 edema, other Musculoskeletal exam: PRESENT: full ROM Neurological exam: PRESENT: other - Awake but drowsy, not oriented to person place time or situation. Reflexes normal. Patient able to follow one-step commands. No gross motor deficit Psychiatric exam: PRESENT: flat affect Skin exam: PRESENT: intact, normal color, warm Results Laboratory Results: WBC 11.2, current creatinine is 3 up from 0.8 in July 2017, CK 675 Impressions: Chest X-Ray 10/13/17 13:13 IMPRESSION: NO ACUTE RADIOGRAPHIC FINDING IN THE CHEST. Head CT 10/13/17 13:13 IMPRESSION: NORMAL BRAIN CT WITHOUT CONTRAST. EVIDENCE OF ACUTE STROKE: NO. Status: Image reviewed by me Assessment & Plan - Diagnosis (1) Altered mental status Qualifiers: Altered mental status type: somnolence Qualified Code(s): R40.0 - Somnolence Plan: Metabolic encephalopathy in the patient with history of seizures and alcohol abuse, possibly post ictal or due to polypharmacy. Head CT scan grossly normal. Hold home sedatives: Valium amitriptyline gabapentin. Maintain on fall , aspiration, seizure precautions. Monitor neuro checks. (2) Acute renal failure Qualifiers: Acute renal failure type: unspecified Qualified Code(s): N17.9 - Acute kidney failure, unspecified Plan: Acute kidney injury most likely due to significant dehydration.Cr 3 (0.8). We will place a Anderson catheter. Obtain a renal ultrasound. Continue aggressive IV fluids and monitor renal function (3) Alcohol abuse Is this a current diagnosis for this admission?: Yes Plan: History of alcohol abuse. Alcohol level is normal. (4) Tobacco abuse Is this a current diagnosis for this admission?: Yes Plan: Nicotine replacement therapy (5) Hypertension Qualifiers: Hypertension type: essential hypertension Qualified Code(s): I10 - Essential (primary) hypertension Is this a current diagnosis for this admission?: Yes Plan: Blood pressure is at target, continue current home medications (6) Seizures Is this a current diagnosis for this admission?: Yes Plan: We will obtain Keppra levels. Maintain on seizure precautions. Continue home Keppra (7) DVT prophylaxis Plan: Subcutaneous Lovenox - Time Time Spent: Greater than 70 Minutes Anticipated discharge: Home - Inpatient Certification Based on my medical assessment, after consideration of the patient's comorbidities, presenting symptoms, or acuity I expect that the services needed warrant INPATIENT care.: Yes I certify that my determination is in accordance with my understanding of Medicare's requirements for reasonable and necessary INPATIENT services [42 CFR 412.3e].: Yes Medical Necessity: Need For IV Fluids, Need For Continuous Telemetry Monitoring , Risk of Diagnosis Which Will Require Inpatient Eval/Care/Monitoring - Plan Summary Plan Summary: We will admit to the IMCU, continue IV fluid rehydration, and follow neuro checks
[2017-10-13 18:44] LABS: LIPASE 148.4 U/L (23-300)
[2017-10-13] MEDS ORDERED: HEPARIN SOD (PORCINE) 5,000 UNIT/ML 1 ML SYRINGE SUBCUT SCH (22:00)
[2017-10-14] MEDS ORDERED: INFLUENZA ADLT QUAD (36MOS+) 2017-18 VAC 0.5 ML SYR IM PRN (00:37)
[2017-10-14] MEDS: SIMVASTATIN 40 MG TABLET PO SCH ×2 (01:32→22:25)
[2017-10-14] MEDS: LEVETIRACETAM ORAL SOLN 500 MG/5 ML UDCUP PO SCH ×3 (01:33→22:30)
[2017-10-14] MEDS: METOPROLOL TARTRATE 25 MG TABLET PO SCH ×3 (05:24→22:19)
[2017-10-14 06:11] LABS: ABSOLUTE EOSINOPHILS # (AUTO) 0.1 10^3/uL (0.0-0.6); ABSOLUTE LYMPHOCYTES (AUTO) 1.7 10^3/uL (0.5-4.7); ABSOLUTE MONOCYTES (AUTO) 0.9 10^3/uL (0.1-1.4); ABSOLUTE NEUT (AUTO) 5.5 10^3/uL (1.7-8.2); BASOPHILS % (AUTO) 0.5 % (0-2); EOSINOPHILS % (AUTO) 1.2 % (0-6); HEMATOCRIT 32.2 % (37.9-51.0); HGB HCT DIFFERENCE 0.8; LYMPHOCYTES % (AUTO) 20.3 % (13-45); MEAN CORPUSCULAR HEMOGLOBIN 29.5 pg (27.0-33.4); MEAN CORPUSCULAR HGB CONC 34.2 g/dL (32.0-36.0); MEAN CORPUSCULAR VOLUME 86 fl (80-97); MONOCYTES % (AUTO) 11.5 % (3-13); RED BLOOD COUNT 3.74 10^6/uL (4.35-5.55); RED CELL DISTRIBUTION WIDTH 14.6 % (11.5-14.0); SEGMENTED NEUTROPHILS % (AUTO) 66.5 % (42-78); WHITE BLOOD COUNT 8.2 10^3/uL (4.0-10.5)
[2017-10-14 06:29] LABS: ALANINE AMINOTRANSFERASE 29 U/L (21-72); ALBUMIN 3.2 g/dL (3.5-5.0); ALKALINE PHOSPHATASE 66 U/L (38-126); ANION GAP 14 (5-19); ASPARTATE AMINO TRANSFERASE 29 U/L (17-59); BILIRUBIN,DIRECT 0.3 mg/dL (0.0-0.4); BILIRUBIN,TOTAL 0.4 mg/dL (0.2-1.3); BLOOD UREA NITROGEN 24 mg/dL (7-20); CALCIUM 8.9 mg/dL (8.4-10.2); CARBON DIOXIDE 12 mmol/L (22-30); CHLORIDE 120 mmol/L (98-107); CHOLESTEROL 122.15 mg/dL (0-200); CREATINE KINASE 722 U/L (55-170); CREATININE RESULT 1.28 mg/dL (0.52-1.25); Direct HDL 46 mg/dL (>40); GLUCOSE 87 mg/dL (75-110); PHOSPHORUS 2.9 mg/dL (2.5-4.5); POTASSIUM 3.9 mmol/L (3.6-5.0); SODIUM 146.2 mmol/L (137-145); TOTAL PROTEIN 5.7 g/dL (6.3-8.2); TRIGLYCERIDES 128 mg/dL (<150)
[2017-10-14 06:39] LABS: DIRECT LDL 53 mg/dL (<100)
[2017-10-14 07:33] LABS: MAGNESIUM 1.2 mg/dL (1.6-2.3)
[2017-10-14] MEDS: MAGNESIUM SULFATE/D5W 1 GM/100 ML RTUPB IV SCH ×5 (07:50→15:59)
[2017-10-14] MEDS ORDERED: ENOXAPARIN SODIUM INJ 40 MG/0.4 ML DISP.SYRIN SUBCUT SCH (10:00)
[2017-10-14] MEDS ORDERED: LISINOPRIL 10 MG TABLET PO SCH (10:00)
[2017-10-14] MEDS: PANTOPRAZOLE SODIUM 40 MG VIAL IV SCH (10:47)
[2017-10-14] MEDS: NICOTINE 14 MG/24 HR PATCH.TD24 TD SCH (10:48)
[2017-10-14] MEDS: HEPARIN SOD (PORCINE) 5,000 UNIT/ML 1 ML SYRINGE SUBCUT SCH ×2 (11:05→17:35)
--- NOTE | 2017-10-14 11:07 | PDOC PROGRESS REPORT ---
Subjective Progress Note for:: 10/14/17 Subjective:: Day 1 of hospitalization: Follow-up visit for unresponsiveness 52-year-old male with history of hypertension and seizure on Keppra, alcohol abuse, was brought to the ER on 10/13/2017 by family due to altered mental status since 10/12/2017. The patient had reportedly been disoriented, confused , and depressed. On the morning of admission he was found to be very confused and was lying in bed unresponsive, incontinent of stool and urine. It was unclear if he had had a seizure. He was unable to provide any history secondary to being unresponsive. Head CT scan done in the emergency room was negative for any acute abnormalities. The patient was admitted for further evaluation and all the home sedatives held. Overnight he has been gradually more alert and responsive. This morning, patient is fully alert. He denies chest pain, shortness of breath , nausea, vomiting, diarrhea, abdominal pain, headache, and the focal neurologic deficit. He cannot remember the events that led to his hospitalization. He is afebrile Physical Exam Vital Signs: Temp Pulse Resp BP Pulse Ox 98.3 F 101 H 18 110/67 99 10/14/17 07:19 10/14/17 07:19 10/14/17 07:19 10/14/17 07:19 10/14/17 07:19 Intake & Output 10/13/17 10/14/17 10/15/17 06:59 06:59 06:59 Intake Total 200 Output Total 3225 Balance -3025 Weight 63.2 kg General appearance: PRESENT: no acute distress, disheveled, thin Head exam: PRESENT: atraumatic, normocephalic Eye exam: PRESENT: conjunctiva pink, EOMI, PERRLA Respiratory exam: PRESENT: decreased breath sounds, rhonchi, symmetrical. ABSENT: accessory muscle use, chest wall tenderness, clear to auscultation guy, crackles, prolonged expiratory phas, rales, retraction, stridor, tachypnea, unlabored, wheezes, other Cardiovascular exam: PRESENT: RRR, +S1, +S2. ABSENT: bradycardia, clicks, diastolic murmur, gallop, irregular rhythm, rubs, systolic murmur, tachycardia, other GI/Abdominal exam: PRESENT: normal bowel sounds, soft. ABSENT: ascites, diminished bowel sounds, distended, firm, guarding, hernia, hyperactive bowel sounds, hypoactive bowel sounds, mass, Blair's sign, organolmegaly, rebound, rigid, tenderness, other Neurological exam: PRESENT: awake, oriented to person, oriented to place, oriented to time, oriented to situation, reflexes normal, CN II-XII grossly intact. ABSENT: alert, altered, abnormal gait, ataxia, motor sensory deficit, normal gait, aphasic, other Psychiatric exam: PRESENT: anxious Skin exam: PRESENT: dry, normal color, warm Results Laboratory Results: 10/14/17 06:01 10/14/17 06:01 10/13/17 10/13/17 10/13/17 18:10 18:10 18:10 WBC RBC Hgb Hct MCV MCH MCHC RDW Plt Count Seg Neutrophils % Lymphocytes % Monocytes % Eosinophils % Basophils % Absolute Neutrophils Absolute Lymphocytes Absolute Monocytes Absolute Eosinophils Absolute Basophils Sodium Potassium Chloride Carbon Dioxide Anion Gap BUN Creatinine Est GFR ( Amer) Est GFR (Non-Af Amer) Glucose Calcium Phosphorus Magnesium Total Bilirubin AST ALT Alkaline Phosphatase Ammonia < 8.7 L Total Protein Albumin Triglycerides Cholesterol LDL Cholesterol Direct VLDL Cholesterol HDL Cholesterol Amylase 154 H Lipase 148.4 TSH 0.35 L 10/14/17 10/14/17 06:01 06:01 WBC 8.2 RBC 3.74 L Hgb 11.0 L Hct 32.2 L MCV 86 MCH 29.5 MCHC 34.2 RDW 14.6 H Plt Count 179 Seg Neutrophils % 66.5 Lymphocytes % 20.3 Monocytes % 11.5 Eosinophils % 1.2 Basophils % 0.5 Absolute Neutrophils 5.5 Absolute Lymphocytes 1.7 Absolute Monocytes 0.9 Absolute Eosinophils 0.1 Absolute Basophils 0.0 Sodium 146.2 H Potassium 3.9 Chloride 120 H Carbon Dioxide 12 L Anion Gap 14 BUN 24 H Creatinine 1.28 H Est GFR ( Amer) > 60 Est GFR (Non-Af Amer) 59 L Glucose 87 Calcium 8.9 Phosphorus 2.9 Magnesium 1.2 L* Total Bilirubin 0.4 AST 29 ALT 29 Alkaline Phosphatase 66 Ammonia Total Protein 5.7 L Albumin 3.2 L Triglycerides 128 Cholesterol 122.15 LDL Cholesterol Direct 53 VLDL Cholesterol 26.0 HDL Cholesterol 46 Amylase Lipase TSH 10/13/17 10/13/17 10/13/17 18:10 18:10 23:48 Creatine Kinase 1217 H 835 H Troponin I < 0.012 10/13/17 10/14/17 10/14/17 23:48 06:01 06:01 Creatine Kinase 722 H Troponin I < 0.012 < 0.012 Impressions: Chest X-Ray 10/13/17 13:13 IMPRESSION: NO ACUTE RADIOGRAPHIC FINDING IN THE CHEST. Head CT 10/13/17 13:13 IMPRESSION: NORMAL BRAIN CT WITHOUT CONTRAST. EVIDENCE OF ACUTE STROKE: NO. Status: Image reviewed by me Assessment & Plan - Diagnosis (1) Altered mental status Qualifiers: Altered mental status type: somnolence Qualified Code(s): R40.0 - Somnolence Plan: Metabolic encephalopathy in the patient with history of seizures and alcohol abuse, possibly post ictal or due to polypharmacy. Head CT scan grossly normal. Improving. Continue holding home sedatives: Valium amitriptyline gabapentin. Maintain on fall, aspiration, seizure precautions. Monitor neuro checks. (2) Acute renal failure Qualifiers: Acute renal failure type: with acute tubular necrosis Qualified Code(s): N17.0 - Acute kidney failure with tubular necrosis Plan: Acute kidney injury, nonoliguric, most likely due to significant dehydration. Improving with IV fluids. Cr 1.3 (3)(0.8). Anderson catheter discontinued. Continue IV fluids [NSS switched to D5W/0.5NSS due to hypernatremia), avoid nephrotoxic agents and monitor renal function (3) Alcohol abuse Is this a current diagnosis for this admission?: Yes Plan: History of alcohol abuse. Alcohol level is normal. No evidence of alcohol withdrawal at this point. Further alcohol abuse strongly discourage (4) Seizures Is this a current diagnosis for this admission?: Yes Plan: Keppra levels pending. Maintain on seizure precautions. Continue home Keppra (5) Hypertension Qualifiers: Hypertension type: essential hypertension Qualified Code(s): I10 - Essential (primary) hypertension Is this a current diagnosis for this admission?: Yes Plan: Blood pressure is at target, continue current home medications (6) Tobacco abuse Is this a current diagnosis for this admission?: Yes Plan: Nicotine replacement therapy offered (7) Hypomagnesemia Is this a current diagnosis for this admission?: No Plan: Replete and recheck (8) DVT prophylaxis Plan: Subcutaneous heparin - Time Time Spent with patient: 35 or more minutes Smoking Cessation Education: 3 to 10 minutes Medications reviewed and adjusted accordingly: Yes Anticipated discharge: Home - Inpatient Certification Medical Necessity: Need For IV Fluids, Risk of Complication if Not Cared For in Hospital
[2017-10-14] MEDS: DOCUSATE SODIUM 100 MG CAPSULE PO SCH (11:11)
[2017-10-14] MEDS: DEXTROSE 5%-1/2 NORMAL SALINE 1,000 ML IV PRN ×2 (13:45→23:57)
[2017-10-14] MEDS: OXYCODONE HCL IR 5 MG TABLET PO SCH (22:11)
[2017-10-14] MEDS: GABAPENTIN 300 MG CAPSULE PO SCH (22:20)
[2017-10-14] MEDS: DULOXETINE HCL 30 MG CAPSULE.DR PO SCH (22:22)
[2017-10-14] MEDS: BUSPIRONE HCL 10 MG TABLET PO SCH (22:22)
[2017-10-14] MEDS: DIAZEPAM 5 MG TABLET PO SCH (22:26)
[2017-10-15] MEDS: HEPARIN SOD (PORCINE) 5,000 UNIT/ML 1 ML SYRINGE SUBCUT SCH ×2 (01:28→10:16)
[2017-10-15] MEDS: OXYCODONE HCL IR 5 MG TABLET PO SCH (05:14)
[2017-10-15] MEDS: GABAPENTIN 300 MG CAPSULE PO SCH (05:15)
[2017-10-15 05:47] LABS: ABSOLUTE BASOPHILS # (AUTO) 0.1 10^3/uL (0.0-0.2); ABSOLUTE EOSINOPHILS # (AUTO) 0.2 10^3/uL (0.0-0.6); ABSOLUTE LYMPHOCYTES (AUTO) 1.9 10^3/uL (0.5-4.7); ABSOLUTE MONOCYTES (AUTO) 0.8 10^3/uL (0.1-1.4); ABSOLUTE NEUT (AUTO) 7.1 10^3/uL (1.7-8.2); BASOPHILS % (AUTO) 0.6 % (0-2); EOSINOPHILS % (AUTO) 1.9 % (0-6); HEMOGLOBIN 10.5 g/dL (13.5-17.0); HGB HCT DIFFERENCE 0.5; LYMPHOCYTES % (AUTO) 19.1 % (13-45); MEAN CORPUSCULAR HEMOGLOBIN 29.4 pg (27.0-33.4); MEAN CORPUSCULAR HGB CONC 33.8 g/dL (32.0-36.0); MEAN CORPUSCULAR VOLUME 87 fl (80-97); MONOCYTES % (AUTO) 8.2 % (3-13); RED BLOOD COUNT 3.56 10^6/uL (4.35-5.55); RED CELL DISTRIBUTION WIDTH 14.9 % (11.5-14.0); SEGMENTED NEUTROPHILS % (AUTO) 70.2 % (42-78)
[2017-10-15 05:54] LABS: ALANINE AMINOTRANSFERASE 33 U/L (21-72); ALBUMIN 3.2 g/dL (3.5-5.0); ALKALINE PHOSPHATASE 62 U/L (38-126); ANION GAP 11 (5-19); ASPARTATE AMINO TRANSFERASE 23 U/L (17-59); BILIRUBIN,DIRECT 0.3 mg/dL (0.0-0.4); BILIRUBIN,TOTAL 0.4 mg/dL (0.2-1.3); BLOOD UREA NITROGEN 18 mg/dL (7-20); CALCIUM 8.9 mg/dL (8.4-10.2); CARBON DIOXIDE 17 mmol/L (22-30); CHLORIDE 114 mmol/L (98-107); GLUCOSE 109 mg/dL (75-110); MAGNESIUM 1.6 mg/dL (1.6-2.3); POTASSIUM 3.7 mmol/L (3.6-5.0); SODIUM 142.3 mmol/L (137-145); TOTAL PROTEIN 5.9 g/dL (6.3-8.2)
[2017-10-15] MEDS: DEXTROSE 5%-1/2 NORMAL SALINE 1,000 ML IV PRN (08:26)
[2017-10-15 09:23] VITALS: BP 128/68
--- NOTE | 2017-10-15 09:57 | PDOC DISCHARGE SUMMARY ---
General - Admit/Disc Date/PCP Admission Date/Primary Care Provider: 10/13/17 17:32 BERTRAND ARAGON, [employer] Discharge Date: 10/15/17 - Discharge Diagnosis (1) Altered mental status Is this a current diagnosis for this admission?: Yes Summary: Most likely multifactorial: Polypharmacy, prescription medication abuse, alcohol abuse. Resolved. Patient is requesting to be discharged home. (2) Acute renal failure Is this a current diagnosis for this admission?: Yes Summary: Due to dehydration. Resolved (3) Alcohol abuse Is this a current diagnosis for this admission?: Yes Summary: No evidence of alcohol withdrawal at this time. Further alcohol abuse strongly discouraged (4) Seizures Is this a current diagnosis for this admission?: Yes Summary: No seizures observed. Keppra level was sent out and is still pending. Patient is to resume home Keppra. (5) Hypertension Is this a current diagnosis for this admission?: Yes Summary: Blood pressure at goal. Resume home lisinopril upon discharge (6) Tobacco abuse Is this a current diagnosis for this admission?: Yes Summary: Smoking cessation counseling completed. Patient does not wish to quit smoking at this time. (7) Hypomagnesemia Is this a current diagnosis for this admission?: No Summary: Repleted - Additional Information Resuscitation Status: Full Code Discharge Diet: Regular Discharge Activity: Activity As Tolerated, Balance Activity w/Rest Home Medications: Amitriptyline HCl [Elavil 100 mg Tablet] 100 mg PO QHS 10/13/17 Baclofen [Baclofen 10 mg Tablet] 10 mg PO Q8HP PRN 10/13/17 Buspirone HCl [Buspar 10 mg Tablet] 10 mg PO Q12 10/13/17 Diazepam [Valium] 5 mg PO Q8 10/13/17 Duloxetine HCl [Cymbalta] 60 mg PO Q12 10/13/17 Gabapentin [Neurontin] 600 mg PO Q8 10/13/17 Hydroxyzine Pamoate [Vistaril 25 mg Capsule] 25 mg PO Q6HP PRN 10/13/17 Levetiracetam [Keppra] 750 mg PO Q12 10/13/17 Lisinopril [Prinivil 10 mg Tablet] 10 mg PO DAILY 10/13/17 Metoprolol Tartrate [Lopressor 25 mg Tablet] 25 mg PO Q12 10/13/17 Omeprazole 40 mg PO Q12 10/13/17 Oxycodone HCl 15 mg PO Q4H 10/13/17 Simvastatin [Zocor 40 mg Tablet] 40 mg PO QHS 10/13/17 History of Present Illness History of Present Illness: LIZ WETZEL is a 52 year old male with history of hypertension and seizure on Keppra, was brought to the emergency room by family due to altered mental status since 10/12/2017. The patient is unresponsive and history has been obtained from the family [niece who is by the bedside]. Family, the patient started 'talking out of his head' yesterday. He was reportedly disoriented, confused, and depressed. This morning he was significantly more confused. He was later found in his bed, unresponsive, incontinent of stool and urine. When brought to the emergency room, patient was responsive to painful stimuli, and was unable to provide any history. Head CT scan was negative for any acute abnormalities. At the time of my exam, the patient is becoming more awake and is able to speak in monosyllables. However he is still unable to state where he is, what year, or the name of his niece who is standing by the bedside. Physical Exam Vital Signs: Temp Pulse Resp BP Pulse Ox 98.6 F 84 18 128/68 H 98 10/15/17 09:20 10/15/17 09:20 10/15/17 09:20 10/15/17 09:20 10/15/17 09:20 Intake & Output 10/14/17 10/15/17 10/16/17 06:59 06:59 06:59 Intake Total 200 3833 Output Total 3225 2550 Balance -3025 1283 Weight 63.2 kg 63.4 kg General appearance: PRESENT: no acute distress, cooperative, disheveled, thin - Cachectic Head exam: PRESENT: atraumatic, normocephalic Eye exam: PRESENT: conjunctiva pink, EOMI Respiratory exam: PRESENT: decreased breath sounds, rhonchi, symmetrical, unlabored Cardiovascular exam: PRESENT: RRR, +S1, +S2 GI/Abdominal exam: PRESENT: normal bowel sounds, soft. ABSENT: ascites, diminished bowel sounds, distended, firm, guarding, hernia, hyperactive bowel sounds, hypoactive bowel sounds, mass, Blair's sign, organolmegaly, rebound, rigid, tenderness, other Neurological exam: PRESENT: alert, awake, oriented to person, oriented to place , oriented to time, oriented to situation, reflexes normal, CN II-XII grossly intact Psychiatric exam: PRESENT: normal mood Results Laboratory Results: 10/15/17 05:23 10/15/17 05:23 10/15/17 10/15/17 05:23 05:23 WBC 10.0 RBC 3.56 L Hgb 10.5 L Hct 31.0 L MCV 87 MCH 29.4 MCHC 33.8 RDW 14.9 H Plt Count 172 Seg Neutrophils % 70.2 Lymphocytes % 19.1 Monocytes % 8.2 Eosinophils % 1.9 Basophils % 0.6 Absolute Neutrophils 7.1 Absolute Lymphocytes 1.9 Absolute Monocytes 0.8 Absolute Eosinophils 0.2 Absolute Basophils 0.1 Sodium 142.3 Potassium 3.7 Chloride 114 H Carbon Dioxide 17 L Anion Gap 11 BUN 18 Creatinine 0.90 Est GFR ( Amer) > 60 Est GFR (Non-Af Amer) > 60 Glucose 109 Calcium 8.9 Magnesium 1.6 Total Bilirubin 0.4 AST 23 ALT 33 Alkaline Phosphatase 62 Total Protein 5.9 L Albumin 3.2 L 10/13/17 10/13/17 10/13/17 18:10 18:10 23:48 Creatine Kinase 1217 H 835 H Troponin I < 0.012 10/13/17 10/14/17 10/14/17 23:48 06:01 06:01 Creatine Kinase 722 H Troponin I < 0.012 < 0.012 Impressions: Chest X-Ray 10/13/17 13:13 IMPRESSION: NO ACUTE RADIOGRAPHIC FINDING IN THE CHEST. Head CT 10/13/17 13:13 IMPRESSION: NORMAL BRAIN CT WITHOUT CONTRAST. EVIDENCE OF ACUTE STROKE: NO. Status: Image reviewed by me Qualifiers PATEINT BEING DISCHARGED WITH ANY OF THE FOLLOWING DIAGNOSIS?: No Plan Time Spent: Greater than 30 Minutes - I have reviewed the discharge diagnosis, and discharge instructions with the patient and the patient's sister who is by the bedside. I have made it clear to the patient that continued alcohol abuse as well as prescription medication abuse presents a unique risk for him which could results in unresponsiveness, disability and . He has expressed a clear understanding of these issues and states that he will not abuse his prescriptions medication anymore. He plans to follow-up with his primary care physician within 1 week
[2017-10-15] MEDS: METOPROLOL TARTRATE 25 MG TABLET PO SCH (10:15)
[2017-10-15] MEDS: LEVETIRACETAM ORAL SOLN 500 MG/5 ML UDCUP PO SCH (10:15)
[2017-10-15] MEDS: DOCUSATE SODIUM 100 MG CAPSULE PO SCH (10:15)
[2017-10-15] MEDS: DIAZEPAM 5 MG TABLET PO SCH (10:15)
[2017-10-15] MEDS: BUSPIRONE HCL 10 MG TABLET PO SCH (10:15)
[2017-10-15] MEDS: DULOXETINE HCL 30 MG CAPSULE.DR PO SCH (10:16)
[2017-10-15] MEDS: PANTOPRAZOLE SODIUM 40 MG VIAL IV SCH (10:16)
[2017-10-15] MEDS: NICOTINE 14 MG/24 HR PATCH.TD24 TD SCH (10:16)
== END 2017-10-15 11:35 | disposition home or self-care (01) | DRG 91 ==
LOC: ER 12:35 → EH 17:32 → 3N 19:53
PROVIDERS: ADMIT Hospitalist; ATTEND Hospitalist
DX: G92 Toxic encephalopathy (principal); N17.0 Acute kidney failure with tubular necrosis; T50.905A Adverse effect of unspecified drugs, medicaments and biological substances, initial encounter; E86.0 Dehydration; F10.10 Alcohol abuse, uncomplicated; G40.909 Epilepsy, unspecified, not intractable, without status epilepticus; I10 Essential (primary) hypertension; E83.42 Hypomagnesemia; E78.5 Hyperlipidemia, unspecified; K21.9 Gastro-esophageal reflux disease without esophagitis; F32.9 Major depressive disorder, single episode, unspecified; F17.200 Nicotine dependence, unspecified, uncomplicated; M41.9 Scoliosis, unspecified; I45.10 Unspecified right bundle-branch block; Z96.9 Presence of functional implant, unspecified; Z79.899 Other long term (current) drug therapy; Z87.820 Personal history of traumatic brain injury; Z82.3 Family history of stroke
CPT/HCPCS: 36415; 51701; 51702; 70450; 71010; 80053; 80061; 80177; 80307; 81001; 82140; 82150; 82550; 83036; 83690; 83735; 84100; 84443; 84484; 85025; 87040; 87086; 93005; 93010; 96365; 96366; 99285; J1644; J3475; J3490; J7030; J7120; S0164

== ENCOUNTER 2019-04-01 09:48 | Emergency (ER) | payer MEDICARE, MEDICAID ==
[2019-04-01] MEDS ORDERED: NALOXONE HCL INJ 2 MG/2 ML DISP.SYRIN ONE (09:58)
[2019-04-01] MEDS ORDERED: ETOMIDATE INJ/PF 20 MG/10 ML SDV IV ONE ×2 (10:07→20:54)
[2019-04-01] MEDS ORDERED: ROCURONIUM BROMIDE INJ 50 MG/5 ML VIAL IV ONE ×2 (10:07→20:54)
[2019-04-01] MEDS ORDERED: FENTANYL CITRATE INJ/PF 100 MCG/2 ML AMPUL ONE ×2 (10:12→12:25)
[2019-04-01] MEDS ORDERED: NORMAL SALINE 1000 ML 1,000 ML IV PRN (10:14)
[2019-04-01] MEDS ORDERED: PROPOFOL 1,000 MG/100 ML INFUS..BTL IV ONE ×2 (10:15→17:32)
--- NOTE | 2019-04-01 10:19 | ER Document Report ---
ED General - General Stated Complaint: ALTERED MENTAL STATUS Time Seen by Provider: 04/01/19 09:52 Primary Care Provider: BERTRAND ARAGON FNP [Primary Care Provider] - Follow up as needed Notes: 54-year-old male with history of opiate abuse and psychiatric issues presents with altered mental status last seen normal on Sunday when [place], today was unresponsive. Brought in by EMS initially with altered mental status but I was called to the room to evaluate him because he was on his. He cannot give a history. TRAVEL OUTSIDE OF THE [place] IN LAST 30 DAYS: No - Related Data Allergies/Adverse Reactions: No Known Allergies Allergy (Verified 08/07/17 20:41) Past Medical History - General Cannot obtain history due to: Intubated - Social History Smoking Status: Unknown if Ever Smoked Family History: CVA - Mother - Past Medical History Cardiac Medical History: Reports: Hx Hypercholesterolemia, Hx Hypertension Pulmonary Medical History: Reports: Hx Pneumonia Neurological Medical History: Reports: Hx Seizures Renal/ Medical History: Denies: Hx Peritoneal Dialysis GI Medical History: Reports: Hx Gastroesophageal Reflux Disease Psychiatric Medical History: Reports: Hx Anxiety, Hx Depression Traumatic Medical History: Reports: Hx Fractures - Heel fractures, Hx Traumatic Brain Injury Past Surgical History: Reports: Hx Orthopedic Surgery - Harris rods age 17 for scoliosis - Immunizations Hx Diphtheria, Pertussis, Tetanus Vaccination: No Review of Systems - Review of Systems Notes: REVIEW OF SYSTEMS Caveat altered mental status PHYSICAL EXAMINATION General: Thin edentulous Head: Atraumatic, normocephalic ENT: Mouth normal, oropharynx dry, no exudates or tonsillar enlargement Eyes: Conjunctiva normal, pupils 4 mm right 5 mm left, reactive to light, lids normal Neck: No JVD, supple, no guarding CVS: Irregular pulse rapid Resp: No resp distress, equal and normal breath sounds bilaterally GI: Nondistended, soft, no tenderness to palpation, no rebound or guarding Ext: No deformities, no edema, normal range of motion in upper and lower ext Back: No CVA or midline TTP Skin: No rash, warm Lymphatic: No lymphadeopathy noted Neuro: Closed do not open to pain. Essentially unresponsive to painful stimulus. Physical Exam - Vital signs Vitals: Temp Resp BP Pulse Ox 91.8 F L 32 H 103/67 82 L 04/01/19 10:08 04/01/19 10:08 04/01/19 10:08 04/01/19 10:08 Course - Re-evaluation Re-evalutation: 54-year-old man with history of meth psychiatric issues and seizure disorder presents with altered mental status. He is unresponsive on ED arrival. His blood glucose was normal in the field. Initially hypotensive. Moved to trauma room. Attempted full milligram of Narcan IV, which did not change in mental status or respiratory status. Give a fluid bolus which increased blood pressure. Twelve-lead EKG shows A. fib. At this time the patient was intubated, please see note. Post intubation he developed mild hypotension which was treated with fluids. Differential still includes head bleed or toxic. We will check electrolytes ABG, send him to CT for a stat scan after chest x-ray done to confirm tube placement. OG tube. 04/01/19 10:22 Scan of had negative. Labs are showing uremia with acute renal failure and likely red rhabdomyolysis s superimposed. Patient's blood pressure remained low so I ordered further fluid boluses, back on propofol, and added more fluids 04/01/19 11:[address] Aleena chua from hospitalist service who is uncomfortable caring for this patient without an travel specialist. Discussed with [facility] on 11:15 AM and patient was accepted 04/01/19 13:08 Reassessed multiple times over the. Of 11 AM to 1 PM. Needed to up titrate levo fed in the setting of propofol and hypotension. Consider cardioversion when the rate was in the 180s however will be set up with pads increased sedation the patient converted himselfrepeat EKG shows sinus rhythm in the 80s. We will continue current treatment plan and repeat labs to see where his doctor lites are. We will repeat blood gas. 04/01/19 13:32 He needs to be hypotensive. Have added empiric magnesium dosing, bicarb dosing, will check magnesium level. Urine appears infected and the patient is already received broad-spectrum and biotics. He does have hematuria so we will order him a CT to rule out obstructing stone. He also has become hypothermic and is currently being rewarmed. Spoke with [facility] again at 130 and they have no beds for him yet but expect 1 to become available in the next 2 hours. Continue Levophed, fluid maintenance and sedation/analgesia. - Vital Signs Vital signs: Temp Pulse Resp BP Pulse Ox 91.4 F L 150 H 12 89/70 L 100 04/01/19 11:42 04/01/19 10:30 04/01/19 11:42 04/01/19 12:01 04/01/19 13:58 - Laboratory Result Diagrams: 04/01/19 10:00 04/01/19 13:05 Laboratory results interpreted by me: 04/01/19 04/01/19 04/01/19 10:00 10:00 10:00 WBC 20.4 H Hgb 12.1 L Hct 37.1 L RDW 16.0 H Seg Neuts % (Manual) 87 H Band Neutrophils % 2 L Lymphocytes % (Manual) 4 L Abs Neuts (Manual) 18.2 H PT 15.9 H Carbonic Acid ABG pH ABG pCO2 ABG pO2 ABG HCO3 ABG Total CO2 ABG O2 Saturation VBG pH VBG HCO3 Sodium 154.8 H Potassium 5.2 H Chloride 116 H Carbon Dioxide 16 L Anion Gap 23 H BUN 125 H Creatinine 13.71 H Est GFR ( Amer) 5 L Est GFR (Non-Af Amer) 4 L Glucose 197 H Calcium Creatine Kinase Urine Protein Urine Ketones Urine Blood Urine Bilirubin Salicylates < 1.0 L Acetaminophen < 10 L 04/01/19 04/01/19 04/01/19 10:00 11:09 11:59 WBC Hgb Hct RDW Seg Neuts % (Manual) Band Neutrophils % Lymphocytes % (Manual) Abs Neuts (Manual) PT Carbonic Acid 1.00 L ABG pH 7.21 L ABG pCO2 33.1 L ABG pO2 238.8 H ABG HCO3 12.9 L ABG Total CO2 14.0 L ABG O2 Saturation 99.4 H VBG pH VBG HCO3 Sodium Potassium Chloride Carbon Dioxide Anion Gap BUN Creatinine Est GFR ( Amer) Est GFR (Non-Af Amer) Glucose Calcium Creatine Kinase 1543 H Urine Protein 100 H Urine Ketones TRACE H Urine Blood LARGE H Urine Bilirubin SMALL H Salicylates Acetaminophen 04/01/19 04/01/19 13:05 13:05 WBC Hgb Hct RDW Seg Neuts % (Manual) Band Neutrophils % Lymphocytes % (Manual) Abs Neuts (Manual) PT Carbonic Acid ABG pH ABG pCO2 ABG pO2 ABG HCO3 ABG Total CO2 ABG O2 Saturation VBG pH 7.17 L* VBG HCO3 16.9 L Sodium 146.7 H Potassium Chloride 114 H Carbon Dioxide 16 L Anion Gap BUN 113 H Creatinine 10.46 H Est GFR ( Amer) 6 L Est GFR (Non-Af Amer) 5 L Glucose 176 H Calcium 8.0 L Creatine Kinase Urine Protein Urine Ketones Urine Blood Urine Bilirubin Salicylates Acetaminophen - Diagnostic Test Radiology reviewed: Image reviewed, Reports reviewed Procedures - Intubation Orotracheal Time of Intubation: 11:00 Airway evaluation: Normal anatomy Mallampati Classification: Class 1 Medications: Etomidate, Other Intubation method: Orotracheal Blade type: Jonny Blade size: 3 Equipment used: Glidescope ETT size: 8.0 ETT secured at: Gums ETT secured at (cm): 25 Breath Sounds after Intubation: Equal End tidal CO2 confirmed: Yes Ventilator settings: AC Post Intubation Xray: Yes Intubation Complications: No complications Critical Care Note - Critical Care Note Total time excluding time spent on procedures (mins): 75 Comments: The above patient is critically ill. Not including procedures, but including direct re-evaluations, speaking with patient and/or consultants, interpreting results, and documenting, I spent the total amount of minute listed listed above on critical care time the above patient is critically ill. Not including procedures, but including direct re-evaluations, speaking with patient and/or consultants, interpreting results, and documenting, I spent the total amount of minute listed listed above on critical care time Discharge - Discharge Clinical Impression: Acute kidney injury, Hypovolemic shock, Uremia Condition: Critical Disposition: [facility] Referrals: BERTRAND ARAGON FNP [Primary Care Provider] - Follow up as needed
[2019-04-01 10:26] LABS: HEMATOCRIT 37.1 % (37.9-51.0); HEMOGLOBIN 12.1 g/dL (13.5-17.0); MEAN CORPUSCULAR HEMOGLOBIN 27.9 pg (27.0-33.4); MEAN CORPUSCULAR HGB CONC 32.6 g/dL (32.0-36.0); MEAN CORPUSCULAR VOLUME 85 fl (80-97); PLATELET COUNT 317 10^3/uL (150-450); RED BLOOD COUNT 4.35 10^6/uL (4.35-5.55); WHITE BLOOD COUNT 20.4 10^3/uL (4.0-10.5)
[2019-04-01 10:27] LABS: INTERNATIONAL RATION (INR) 1.21; PROTHROMBIN TIME 15.9 SEC (11.4-15.4)
[2019-04-01 10:31] LABS: CALCIUM 8.7 mg/dL (8.4-10.2); GLUCOSE 197 mg/dL (75-110); POTASSIUM 5.2 mmol/L (3.6-5.0)
--- NOTE | 2019-04-01 10:33 | ER Document Report ---
ED Medical Screen (RME) - General Chief Complaint: Altered Mental Status Stated Complaint: ALTERED MENTAL STATUS Time Seen by Provider: 04/01/19 09:52 Primary Care Provider: BERTRAND ARAGON FNP [Primary Care Provider] - Follow up as needed TRAVEL OUTSIDE OF THE [place] IN LAST 30 DAYS: No - HPI Notes: 04/01/19 10:31 I was called by the nurse to room 20 to evaluate the patient. EMS states that he was answering question unresponsive to them upon transport, but upon arrival became unresponsive. Brief evaluation of the patient revealed somewhat irregular pupils, tachycardia, and unresponsiveness to stimuli. I immediately left the room and had Dr. Vasques come evaluate the patient. We then transferred to Trauma 1 and he assumed care. I have treated and performed a rapid initial assessment of this patient. A comprehensive ED assessment and evaluation of the patient, analysis of test results and completion of medical decision making process will be conducted by additional ED providers. - Related Data Allergies/Adverse Reactions: No Known Allergies Allergy (Verified 08/07/17 20:41) Past Medical History - Past Medical History Cardiac Medical History: Reports: Hx Hypercholesterolemia, Hx Hypertension Pulmonary Medical History: Reports: Hx Pneumonia Neurological Medical History: Reports: Hx Seizures Renal/ Medical History: Denies: Hx Peritoneal Dialysis GI Medical History: Reports: Hx Gastroesophageal Reflux Disease Psychiatric Medical History: Reports: Hx Anxiety, Hx Depression Traumatic Medical History: Reports: Hx Fractures - Heel fractures, Hx Traumatic Brain Injury Past Surgical History: Reports: Hx Orthopedic Surgery - Harris rods age 17 for scoliosis - Immunizations Hx Diphtheria, Pertussis, Tetanus Vaccination: No History of Influenza Vaccine for 08/2017 - 01/2018 Season: Unknown Course - Laboratory Result Diagrams: 04/01/19 10:00 04/01/19 10:00 Laboratory results interpreted by me: 04/01/19 04/01/19 10:00 10:00 WBC 20.4 H Hgb 12.1 L Hct 37.1 L RDW 16.0 H PT 15.9 H Doctor's Discharge - Discharge Referrals: BERTRAND ARAGON FNP [Primary Care Provider] - Follow up as needed
[2019-04-01 10:37] LABS: CARBON DIOXIDE 16 mmol/L (22-30); CHLORIDE 116 mmol/L (98-107); SODIUM 154.8 mmol/L (137-145)
[2019-04-01 10:40] LABS: ACETAMINOPHEN < 10 ug/mL (10-30); BLOOD UREA NITROGEN 125 mg/dL (7-20); SALICYLATE < 1.0 mg/dL (2.0-20.0)
[2019-04-01 10:41] LABS: ANION GAP 23 (5-19)
[2019-04-01] MEDS ORDERED: CEFTRIAXONE 1 GM/D5W RTU 1 GM/50 ML RTUPB IV ONE ×2 (10:43→15:00)
[2019-04-01 10:57] LABS: URINE BARBITURATES SCREEN NEGATIVE; URINE BENZODIAZEPINES SCREEN UNCONFIRMED POSITIVE; URINE COCAINE SCREEN NEGATIVE; URINE MARIJUANA (THC) SCREEN NEGATIVE; URINE METHADONE SCREEN NEGATIVE; URINE PHENCYCLIDINE SCREEN NEGATIVE
[2019-04-01 11:01] LABS: ABSOLUTE LYMPHOCYTES# (MANUAL) 0.8 10^3/uL (0.5-4.7); ABSOLUTE MONOCYTES # (MANUAL) 1.4 10^3/uL (0.1-1.4); ABSOLUTE NEUTROPHILS# (MANUAL) 18.2 10^3/uL (1.7-8.2); ANISOCYTOSIS 1+; BAND NEUTROPHILS % (MANUAL) 2 % (3-5); BASOPHILS % (MANUAL) 0 % (0-2); EOSINOPHILS % (MANUAL) 0 % (0-6); LYMPHOCYTES % (MANUAL) 4 % (13-45); MONOCYTES % (MANUAL) 7 % (3-13); PLATELET CLUMPS PRESENT; PLATELET COMMENT ADEQUATE; SEGMENTED NEUTROPHILS % (MAN) 87 % (42-78); TOTAL CELLS COUNTED 100; TOXIC GRANULATION SLIGHT; TOXIC VACUOLATION PRESENT
[2019-04-01] MEDS ORDERED: DEXTROSE 5%-WATER 250 ML with NOREPINEPHRINE BITARTRATE 4 MG IV PRN ×2 (11:08)
[2019-04-01] MEDS ORDERED: RINGERS SOLUTION,LACTATED 1,000 ML IV ONE (11:08)
[2019-04-01] MEDS ORDERED: PIPERACILLIN/TAZOBACTAM 3.375 GM VIAL IV ONE ×2 (11:14→19:20)
[2019-04-01 11:17] LABS: ARTERIAL BLOOD BASE EXCESS -13.8 mmol/L; ARTERIAL BLOOD HCO3 12.9 mmol/L (20-24); ARTERIAL BLOOD O2 SATURATION 99.4 % (94-98); ARTERIAL BLOOD PCO2 33.1 mmHg (35-45); ARTERIAL BLOOD PH 7.21 (7.35-7.45); ARTERIAL BLOOD PO2 238.8 mmHg (80-100)
[2019-04-01 11:18] LABS: ARTERIAL BLOOD FIO2 40%
--- NOTE | 2019-04-01 11:26 | RADIOLOGY REPORT (SQ) ---
EXAM DESCRIPTION: CT HEAD WITHOUT COMPLETED DATE/TIME: 04/01/2019 10:53 am REASON FOR STUDY: ams COMPARISON: CT brain 04/01/2019, 10/13/2017 TECHNIQUE: Axial images acquired through the brain without intravenous contrast. Images reviewed wi th bone, brain and subdural windows. Additional sagittal and coronal reconstructions were generated. Images stored on PACS. All CT scanners at this facility use dose modulation, iterative reconstruction, and/or weight based d osing when appropriate to reduce radiation dose to as low as reasonably achievable (ALARA). [facility]: Dose Right [facility]: CareDose [facility]: Dose Right [facility]: Teradose 4D [facility]: [employer] RADIATION DOSE: CT Rad equipment meets quality standard of care and radiation dose reduction techniq ues were employed. CTDIvol: 53.2 mGy. DLP: 1044 mGy-cm. mGy. LIMITATIONS: None. FINDINGS: VENTRICLES: Normal size and contour. CEREBRUM: No masses. No hemorrhage. No midline shift. No evidence for acute infarction. Normal gra y/white matter differentiation. No areas of low density in the white matter. CEREBELLUM: No masses. No hemorrhage. No alteration of density. No evidence for acute infarction. EXTRAAXIAL SPACES: No fluid collections. No masses. ORBITS AND GLOBE: No intra- or extraconal masses. Normal contour of globe without masses. CALVARIUM: No fracture. PARANASAL SINUSES: No fluid or mucosal thickening. SOFT TISSUES: No mass or hematoma. OTHER: No other significant finding. IMPRESSION: NORMAL BRAIN CT WITHOUT CONTRAST. EVIDENCE OF ACUTE STROKE: NO. COMMENT: Quality ID # 436: Final reports with documentation of one or more dose reduction techniques (e.g., Automated exposure control, adjustment of the mA and/or kV according to patient size, use of iterative reconstruction technique) TECHNICAL DOCUMENTATION: JOB ID: [id number] [employer]- All Rights Reserved Reading location - IP/workstation name: [email or web address]
--- NOTE | 2019-04-01 11:28 | RADIOLOGY REPORT (SQ) ---
EXAM DESCRIPTION: CHEST SINGLE VIEW COMPLETED DATE/TIME: 04/01/2019 10:49 am REASON FOR STUDY: tube placement COMPARISON: Chest films 10/13/2017, 04/22/2017, 10/03/2016 EXAM PARAMETERS: NUMBER OF VIEWS: One view. TECHNIQUE: Single frontal radiographic view of the chest acquired. RADIATION DOSE: NA LIMITATIONS: None. FINDINGS: LUNGS AND PLEURA: Lungs are well inflated and clear. No pleural effusion. No pneumothora x. MEDIASTINUM AND HILAR STRUCTURES: No masses. Contour normal. HEART AND VASCULAR STRUCTURES: Heart normal in size. Normal vasculature. BONES: Convex rightward thoracic scoliosis with fractured Harris prince HARDWARE: Endotracheal tube tip midtrachea. Nasogastric tube tip in the distal esophagus. NG tube s hould be advanced another 10 cm. OTHER: No other significant finding. IMPRESSION: No acute infiltrates Endotracheal tube tip midtrachea. Nasogastric tube tip in the distal esophagus TECHNICAL DOCUMENTATION: JOB ID: [id number] [employer]- All Rights Reserved Reading location - IP/workstation name: [email or web address]
[2019-04-01] MEDS ORDERED: PHENYLEPHRINE HCL INJ/PF 10 MG/1 ML SDV ONE (12:08)
[2019-04-01] MEDS ORDERED: NOREPINEPHRINE BITARTRATE INJ/PF 4 MG/4 ML SDV IV ONE (12:10)
[2019-04-01 12:23] LABS: APPEARANCE,URINE CLOUDY; BILIRUBIN,URINE SMALL (NEGATIVE); COLOR,URINE YELLOW; GLUCOSE, URINE NEGATIVE (NEGATIVE); KETONES,URINE TRACE mg/dL (NEGATIVE); LEUKOCYTE ESTERASE,URINE NEGATIVE (NEGATIVE); NITRITE,URINE NEGATIVE (NEGATIVE); PROTEIN,URINE 100 mg/dL (NEGATIVE); UROBILINOGEN,URINE NEGATIVE mg/dL (<2.0)
--- NOTE | 2019-04-01 13:04 | RADIOLOGY REPORT (SQ) ---
EXAM DESCRIPTION: CHEST SINGLE VIEW COMPLETED DATE/TIME: 04/01/2019 12:36 pm REASON FOR STUDY: confirm OG placement COMPARISON: Earlier same day. EXAM PARAMETERS: NUMBER OF VIEWS: One view. TECHNIQUE: Single frontal radiographic view of the chest acquired. RADIATION DOSE: NA LIMITATIONS: See below. FINDINGS: Upper lungs and right lateral margin of the lungs excluded from field of view. Nasogastri c tube tip overlying gastric fundus. Side hole overlying gastroesophageal junction. Consider advanc ing 4 - 5 cm. IMPRESSION: Slightly high position of nasogastric tube. TECHNICAL DOCUMENTATION: JOB ID: [id number] [employer]- All Rights Reserved Reading location - IP/workstation name: [email or web address]
[2019-04-01] MEDS ORDERED: SODIUM BICARBONATE 8.4% INJ 50 MEQ/50 ML DISP.SYRIN IV ONE (13:10)
[2019-04-01] MEDS ORDERED: PROPOFOL INJ 200 MG/20 ML VIAL IV ONE (13:22)
[2019-04-01] MEDS ORDERED: RINGERS LACTATED IV ONE (13:23)
[2019-04-01] MEDS ORDERED: HYDROCORTISONE SOD SUCCINATE INJ/PF 250 MG/2 ML SDV IV ONE (13:30)
[2019-04-01] MEDS ORDERED: MAGNESIUM SULFATE/D5W 1 GM/100 ML RTUPB IV ONE (13:31)
[2019-04-01 13:51] LABS: VENOUS BLOOD BASE EXCESS -11.2 mmol/L; VENOUS BLOOD HCO3 16.9 mmol/L (20-32); VENOUS BLOOD PCO2 47.2 mmHg (35-63)
[2019-04-01 13:52] LABS: VENOUS BLOOD PH 7.17 (7.30-7.42)
[2019-04-01] MEDS ORDERED: FENTANYL CITRATE INJ/PF 100 MCG/2 ML AMPUL IV PRN (13:56)
[2019-04-01 13:57] LABS: ANION GAP 17 (5-19); BLOOD UREA NITROGEN 113 mg/dL (7-20); CARBON DIOXIDE 16 mmol/L (22-30); CHLORIDE 114 mmol/L (98-107); GLUCOSE 176 mg/dL (75-110); POTASSIUM 4.6 mmol/L (3.6-5.0); SODIUM 146.7 mmol/L (137-145)
--- NOTE | 2019-04-01 14:46 | RADIOLOGY REPORT (SQ) ---
EXAM DESCRIPTION: CT ABD/PELVIS NO ORAL OR IV COMPLETED DATE/TIME: 04/01/2019 2:17 pm REASON FOR STUDY: Dysuria severe sepsis COMPARISON: None. TECHNIQUE: CT scan of the abdomen and pelvis performed without intravenous or oral contrast. Images reviewed with lung, soft tissue, and bone windows. Reconstructed coronal and sagittal MPR images revi ewed. All images stored on PACS. All CT scanners at this facility use dose modulation, iterative reconstruction, and/or weight based d osing when appropriate to reduce radiation dose to as low as reasonably achievable (ALARA). [facility]: Dose Right [facility]: CareDose [facility]: Dose Right [facility]: Teradose 4D [facility]: [employer] RADIATION DOSE: CT Rad equipment meets quality standard of care and radiation dose reduction techniq ues were employed. CTDIvol: 6.2 mGy. DLP: 317 mGy-cm.mGy. LIMITATIONS: Artifact associated with thoracolumbar fusion. FINDINGS: LOWER CHEST: Subsegmental basilar nodular densities likely atelectasis. NON-CONTRASTED LIVER, SPLEEN, ADRENALS: Evaluation limited by lack of IV contrast. No identified sign ificant masses. PANCREAS: No masses. No peripancreatic inflammatory changes. GALLBLADDER: No identified stones by CT criteria. No inflammatory changes to suggest cholecystitis. RIGHT KIDNEY AND URETER: No suspicious masses. Assessment limited by lack of IV contrast. No signif icant calcifications. No hydronephrosis or hydroureter. LEFT KIDNEY AND URETER: No suspicious masses. Assessment limited by lack of IV contrast. 3 mm renal calculus. No hydronephrosis or hydroureter. AORTA AND RETROPERITONEUM: No aneurysm. No retroperitoneal masses or adenopathy. BOWEL AND PERITONEAL CAVITY: Gas fluid levels within nondilated loops of central small bowel. No sharla e air or ascites. Nasogastric tube in the stomach. APPENDIX: Not visualized. PELVIS, BLADDER, AND ABDOMINAL WALL:Catheter in urinary bladder. BONES: Nothing acute. Marked convex left scoliosis. OTHER: No other significant finding. IMPRESSION: 1. Ileus. Good position of NG tube. 2. Nonobstructing stone left kidney. COMMENT: Quality ID # 436: Final reports with documentation of one or more dose reduction techniques (e.g., Automated exposure control, adjustment of the mA and/or kV according to patient size, use of iterative reconstruction technique) TECHNICAL DOCUMENTATION: JOB ID: [id number] [place] [address] [employer]- All Rights Reserved Reading location - IP/workstation name: [email or web address]
[2019-04-01 17:16] VITALS: BP 121/74
--- NOTE | 2019-04-01 17:42 | EKG REPORT ---
SEVERITY:- OTHERWISE NORMAL ECG - SINUS RHYTHM ATRIAL PREMATURE COMPLEX : Confirmed by: Sherita Moreno MD 01-Apr-2019 17:41:25
--- NOTE | 2019-04-01 17:42 | EKG REPORT ---
SEVERITY:- ABNORMAL ECG - ATRIAL FIBRILLATION PROBABLE LVH WITH SECONDARY REPOL ABNRM BORDERLINE INFERIOR Q WAVES PROLONGED QT INTERVAL : Confirmed by: Sherita Moreno MD 01-Apr-2019 17:41:34
== END 2019-04-01 17:43 | disposition short-term general hospital (02) ==
LOC: ER 09:48
DX: N17.9 Acute kidney failure, unspecified (principal); R41.82 Altered mental status, unspecified; T79.4XXA Traumatic shock, initial encounter; X58.XXXA Exposure to other specified factors, initial encounter; E78.00 Pure hypercholesterolemia, unspecified; I10 Essential (primary) hypertension; Z87.820 Personal history of traumatic brain injury; G40.909 Epilepsy, unspecified, not intractable, without status epilepticus
CPT/HCPCS: 31500; 93005; 99291; 99292; 96375; 96365; 96366; 96367; 96368; 36415; 87040; 82803 ×2; 82550; 83605; 83735; 80307 ×3; 84443; 85025; 85610; 80048; 81001; 71045; 70450; 74176; 94660; 93010; 36600; J3490 ×4; J3010; J2704; J1720; J3475; J2310; J7060; J7030; J7120; J0696; J2543